=== PATIENT | female | born 1975 | race Caucasian/White ===

== ENCOUNTER 2019-06-28 09:36 | Outpatient (CLI) | payer OTHER, SELFPAY ==
--- NOTE | 2019-06-28 09:43 | US_ITS ---
WS: [id number] TRANSABDOMINAL PELVIC AND TRANSVAGINAL PELVIC ULTRASOUND HISTORY: MENORRHAGIA/HYPOTHYROIDISM COMPARISON: None available. Uterus: 9.4 cm x 5.6 cm x 4.3 cm. Uterus is moderately enlarged and anteverted. Heterogeneous appeara nce to the myometrium. There is a mass with areas of shadowing in the posterior mid myometrium measur ing 3.5 x 3.0 x 3.8 cm. Mild peripheral increased vascularity. Mass is distorting the adjacent endome trium. Endometrium: Poorly visualized endometrium. Poor visualization is due to the large mass in the mid po sterior myometrium. Suspect this is a fibroid which extends submucosal with distortion and displaceme nt of the endometrium. Endometrium is poorly visualized. Right ovary: 1.9 cm x 1.2 cm x 1.2 cm. Normal size and vascularity. Left ovary: LEFT ovary is not visualized. No free fluid. US/US pelvic with transvaginal IMPRESSION: 1. Moderate heterogeneous mass centered in the posterior mid myometrium with s ignificant distortion and displacement of the endometrium. I favor this is prob ably a fibroid which extend submucosal into the endometrium. Without better vis ualization of the endometrium cannot completely exclude endometrial neoplasm al though thought less likely. 2. LEFT ovary not identified.
== END 2019-06-28 09:37 | disposition home or self-care (01) ==
LOC: RAD 09:39
PROVIDERS: Family Provider Family Medicine; PCP Family Medicine; Visit Provider Family Medicine
DX: N92.0 Excessive and frequent menstruation with regular cycle (principal); N85.00 Endometrial hyperplasia, unspecified
CPT/HCPCS: 76830; 76856

== ENCOUNTER → 2019-07-08 10:47 | Outpatient (BNVA) | payer OTHER, SELFPAY | PROVIDERS: Family Provider Family Medicine; PCP Family Medicine; Referring Provider Family Medicine; Visit Provider Obstetrics & Gynecology | DX: N92.0 Excessive and frequent menstruation with regular cycle (principal) | CPT/HCPCS: 85027 ==

== ENCOUNTER 2019-11-23 08:48 | Observation (INO) | payer OTHER, SELFPAY ==
--- NOTE | 2019-11-22 12:58 | ANES.PREANE2 ---
Pre-Anesthetic Assessment Pre-Anesthetic Assessment: Height/Weight: Height 1.65 m Weight 74.843 kg Preop Diagnosis: Uterine fibroid, Menorrhagia Proposed Procedure: Operation Date: 11/23/19 07:00 Proposed Procedures p Laparoscopic Assist Vaginal Hystectomy 31048/D25.9/N92.0(Bilateral) - Clemente Alexander MD s Salpingo-Oophorectomy (Vaginal)(Bilateral) - Clemente Alexander MD Familial anesthetic complications: Shivering post anesthesia Social: Social History: No alcohol and No tobacco Exam: Pre-Anes Outpt Exam: alert, oriented x 3, clear to auscultation bilaterally and regular rate & rhythm Airway: Cervical ROM: WNL MP: 1 Dentition: Full Pulmonary: Pulmonary: None reported CV/HEM: CV/HEM: None reported : : None reported Hepatic: Hepatic: None reported Metabolic: Metabolic: Thyroid (not on any medications) Musc/skel: Musc/skel: None reported Anesthetic Plan: ASA status: 1 Anesthesia: General Risk of > 500 ml blood loss (7ml/kg in children): No PFSH Anesthesia PFSH: Medical History (Updated 11/05/19 @ 17:56 by Clemente Alexander MD) Hyperlipidemia Seasonal allergies Surgical History History of foot surgery (~2002) Right History of wisdom tooth extraction Family History Family/Other Breast cancer maternal aunt Grandmother Colon cancer maternal Father Hypercholesteremia Hypertension Diabetes Mother Hypercholesteremia Hypertension Diabetes Thyroid disease Social History Smoking and tobacco status: never smoked Alcohol intake: never Other details last substance use: Denies drug use. Female Reproductive History: Date of last menstrual period: 11/12/19 Data Anesthesia Cardiac Studies: No Data to Display
[2019-11-22 13:05] LABS: Basophils % 0.5 %; Eosinophils # 0.2 10^3/uL (0.0-0.8); Eosinophils % 2.9 %; Hematocrit 39.8 % (37.0-47.0); Hemoglobin 12.8 g/dL (11.5-15.3); Lymphocytes # 1.8 10^3/uL (0.8-4.8); Lymphocytes % 28.8 %; Mean Corpuscular HGB Conc 32.2 g/dL (30.0-36.0); Mean Corpuscular Hemoglobin 28.9 pg (28.0-34.0); Mean Corpuscular Volume 89.8 fL (81-99); Mean Platelet Volume 10.7 fL (7.4-10.4); Monocytes # 0.5 10^3/uL (0.2-0.9); Monocytes % 7.6 %; Neutrophils # 3.69 10^3/uL (1.8-7.7); Nucleated Red Blood Cells % 0 %; Platelet Count 255 10^3/cmm (130-400); Red Blood Count 4.43 10^6/uL (4.1-5.3); Red Cell Distribution Width 13.7 % (12.1-15.1); White Blood Count 6.2 10^3/uL (4.0-10.0)
[2019-11-22 13:06] LABS: OR HCG Qualitative Urine Negative (Negative)
[2019-11-22 13:16] LABS: Add Urine Microscopic? NO
[2019-11-22 13:32] LABS: Bilirubin Urine Neg (NEGATIVE); Blood Urine Neg (Negative); Glucose Urine UA Norm (Normal); Ketones Urine Negative (Negative); Leukocyte Esterase Urine Negative (Negative); Nitrate Urine Negative (Negative); Protein Urine Neg (Negative); Specific Gravity, Urine 1.015 (1.005-1.030); Urine Appearance Clear (CLEAR); Urine Color Straw (Yellow); Urobilinogen Urine Norm (Negative); pH Urine 5 (5-7)
[2019-11-23] VITALS (17 sets, daily range): BP systolic 87–126; BP diastolic 47–69; PULSE 57–95; RESP 12–18; TEMP 36.4–37.1; O2SAT 95–100; BMI 27.4
[2019-11-23] MEDS: sodium chloride 0.9% 1,000 ML 30 ML IV (06:29)
[2019-11-23] MEDS: scopolamine 1.5 Patch 1 PATCH TRANSDERMA (06:34)
[2019-11-23] MEDS: ketorolac 30 mg/mL INJ IVP (06:41)
[2019-11-23] MEDS: phenazopyridine 100 mg Tablet 200 MG PO (06:42)
--- NOTE | 2019-11-23 06:46 | P.HPUD_ITS ---
Surgery/Procedure H&P Update DATE OF PROCEDURE: November 23, 2019 DATE H&P PERFORMED: 11/01/19 H&P UPDATE INFORMATION: I have reviewed H&P completed within last 30 days, I have examined patient prior to procedure, No changes to prior documentation and H&P is in [facility] on date indicated PREOP DIAGNOSIS: Uterine fibroid, Menorrhagia PLANNED PROCEDURE: Operation Date: 11/23/19 07:00 Proposed Procedures p Laparoscopic Assist Vaginal Hystectomy 70687/D25.9/N92.0(Bilateral) - Clemente Alexander MD s Salpingo-Oophorectomy (Vaginal)(Bilateral) - Clemente Alexander MD
[2019-11-23] MEDS: clindamycin 900 MG/50 ML PREMIX 100 MG IV (07:11)
--- NOTE | 2019-11-23 07:25 | SUR.OPER ---
0724 - Pt[place] notified of surgery start via his cell phone.
[2019-11-23] MEDS: vasopressin 20 unit/mL INJ INJECTION (07:44)
--- NOTE | 2019-11-23 08:34 | P.OP_ITS ---
Operative Report Date of procedure: November 23, 2019 Pre-op Diagnosis: Uterine fibroid, Menorrhagia Post-op Diagnosis: Uterine fibroid, Menorrhagia Procedure Done: Laparoscopic assisted vaginal hysterectomy with bilateral salpingectomy Specimens removed/disposition: Uterus, cervix, bilateral fallopian tubes Surgeon: Clemente Alexander Tool Storage Attendant: None Anesthesia: General Estimated blood loss (mL): 30 IV fluids (mL): 1,300 Complications: None Findings: Fundal uterine fibroid noted. Normal-appearing ovaries and fallopian tubes. Bilateral paratubal cyst present. Normal-appearing appendix. No adhesions noted. No evidence of endometriosis seen. Condition: stable Brief History: Patient is a 44-year-old white female 2, para 1-1-0-2. She presented to the office with a complaint of worsening bleeding with periods for the last 1-1/2 years. Bleeding is regular in timing. She typically bleeds 5 to 6 days with 2 to 4 days being heavy. She typically soaks a pad and tampon every hour. She reports passing up to quarter sized clots. She reports that she does bleed through to her clothing at least once per cycle. She had been treated with control pills which had not been working. She had a pelvic ultrasound performed which showed a 4 cm uterine fibroid that appeared to extend from the endometrial lining up to the serosa. This was thought to most likely be contributing to if not the cause for her heavy bleeding. Treatment options were discussed with her and she is presenting for hysterectomy. Procedure: The patient was taken to the operating room where general anesthesia was obtained. She was prepped and draped in the usual sterile fashion in the dorsal supine position with legs in Tobin style stirrups. Sequential compression boots were placed prior to starting the case. Anguiano catheter was inserted and exam under anesthesia was performed. She was found to have first to second-degree uterine prolapse. Weighted speculum was placed in the vagina and the cervix was grasped with a single-tooth tenaculum. A Hulka was placed. The infraumbilical region was injected with 2% lidocaine with epinephrine. Skin incision was made with a knife in the lower edge of the navel and a size 10 trocar and sheath were inserted under direct visualization using an Optiview type technique. Trocar was removed and replaced with just the laparoscope confirming intra-abdominal placement. The anterior abdominal wall was inspected and noted to be free of adhesions. In the right and left lower quadrants, lateral to the inferior epigastric vessels, the skin was injected with 2% lidocaine with epinephrine. Skin incisions were made with the knife and a 5 mm trocar and sheath were inserted under direct visualization at each site. The pelvis was inspected and was normal in appearance. She had a fundal fibroid noted. Tubes and ovaries were normal in appearance. She had bilateral paratubal cysts noted. No evidence of endometriosis seen. Appendix was normal in appearance. Using the Voyant sealing device, the left mesosalpinx was sealed and cut and carried over to the corner of the uterus. The utero-ovarian ligament was sealed and cut. The round ligament was sealed and cut and the dissection carried along the lateral aspect of the uterus to approximately the level of the internal os. The broad ligament was and the dissection carried over the lower uterine segment. Using the Voyant sealing device, the right mesosalpinx was sealed and cut and carried over to the corner of the uterus. The utero-ovarian ligament was sealed and cut. The round ligament was sealed and cut and the dissection carried along the lateral aspect of the uterus to approximately the level of the internal os. The broad ligament was and the dissection carried over the lower uterine segment to meet with the dissection from the contralateral side. The dissection areas were noted to be hemostatic. The abdomen was deflated. The patient's legs were placed in the high lithotomy position. The Hulka was removed and a weighted speculum placed in the vagina. The cervix was regrasped with single-tooth tenaculums. The cervix was circumferentially injected with dilute Pitressin solution. A circumferential incision was made with the knife around the cervix. Bladder was bluntly dissected off of the lower uterine segment. Posterior cul-de-sac was sharply entered and the peritoneum tagged to the vaginal mucosa in the midline. A long weighted retractor was placed in the posterior cul-de-sac. The uterosacral ligaments were clamped, cut, and suture ligated with 0 Vicryl suture bilaterally. The cardinal ligaments were clamped, cut, and suture ligated with 0 Vicryl suture bilaterally. The bladder was sharply dissected away from the uterus and the anterior cul-de-sac entered. A long right angle retractor was used to elevate the bladder away from the uterus. The remaining portion of the broad ligament was serially clamped, cut, and suture ligated with 0 Vicryl suture until the uterus was completely excised. The pedicles were inspected and noted to be hemostatic. Posterior edge of the vaginal cuff was oversewn with 0 Vicryl suture in a runn ing locking fashion incorporating the peritoneum to the vaginal mucosa. This extended from the 3:00 position to the 9:00 position posteriorly. The vaginal cuff was closed in a vertical fashion using 0 Vicryl suture in an interrupted [id number] fashion. The uterosacral ligaments and cardinal ligaments were tied in the midline using previously held sutures. The cuff was noted to be hemostatic. The abdomen was reinflated and and the pelvis thoroughly inspected. The areas of dissection were noted to be hemostatic. They were inspected under normal and low pressures. The abdomen was deflated and the ports removed. The 5 mm sites were closed with single stitches of 4-0 Vicryl suture. The umbilical site was closed with a deep stitch of 4-0 Vicryl suture followed by subcuticular closure of the skin. Steri-Strips were applied. Patient tolerated the procedures well. Sponge needle and instrument counts were correct. DRAINS: Anguiano catheter POSTOPERATIVE STATUS: The patient was transferred to the recovery room in satisfactory condition.
[2019-11-23] MEDS: ondansetron 2 mg/ML SDV 2 mL 4 MG IVP ×2 (08:50→09:25)
[2019-11-23] MEDS: dextrose 5%-lactated ringers 1,000 ML 125 ML IV ×2 (09:23→17:51)
[2019-11-23] MEDS: morphine 4 mg/mL SDV 1 mL IVP (10:22)
[2019-11-23] MEDS: HYDROcodone-acetaminophen 5-325 mg Tablet PO ×3 (12:13→20:52)
[2019-11-23] MEDS: docusate sodium 100 mg Capsule PO (17:51)
--- NOTE | 2019-11-24 02:44 | PC.NURSE ---
Restarted IV fluids at 125 ml
[2019-11-24 05:26] LABS: Hematocrit 31.2 % (37.0-47.0); Hemoglobin 10.1 g/dL (11.5-15.3); Mean Corpuscular HGB Conc 32.4 g/dL (30.0-36.0); Mean Corpuscular Hemoglobin 28.8 pg (28.0-34.0); Mean Corpuscular Volume 88.9 fL (81-99); Mean Platelet Volume 10.8 fL (7.4-10.4); Platelet Count 196 10^3/cmm (130-400); Red Blood Count 3.51 10^6/uL (4.1-5.3); White Blood Count 10.2 10^3/uL (4.0-10.0)
--- NOTE | 2019-11-24 08:56 | P.DS_ITS ---
Discharge Providers Date of Admission: 11/23/19 08:48 Date of Discharge: November 24, 2019 Attending Provider at Admission: Clemente Alexander MD Attending Provider at Discharge: Clemente Alexander MD Primary Care Provider: Cristofer Knott MD Diagnoses at Discharge Discharge Diagnosis (1) Uterine fibroid: Status: Acute Qualifiers: Uterine leiomyoma location: intramural Qualified Code(s): D25.1 - Intramural leiomyoma of uterus (2) Menorrhagia: Status: Acute Qualifiers: Menorrhagia type: with regular cycle Qualified Code(s): N92.0 - Exce ssive and frequent menstruation with regular cycle Hospital Course Hospital Course: Patient is a 44-year-old white female 2, para 1-1-0-1 who had presented to the office with complaints of worsening bleeding with her periods. This is been a problem for at least the last 1-1/2 years. Cycles are regular in timing and she will bleed for 5 to 6 days with 2 to 4 days being heavy. Typically soaks a pad and tampon every hour and will bleed through to her clothing at times. Passes up to quarter sized clots. She been treated with control pills which had not been working. Ultrasound had shown a 4 cm uterine fibroid that was transmural. Because of her problems, she is decided proceed to hysterectomy. She was requesting that ovaries not be removed. She was admitted to the hospital where a laparoscopic assisted vaginal hysterectomy with bilateral salpingectomy was performed. She tolerated the s urgery well. Following surgery she had issues with lightheadedness and dizziness to the point that she was not able to ambulate well. As a result she was kept through the night. Postoperative Day 1 Patient reports doing better this morning. She states that her pain is been well controlled on oral medications. She stated that the lightheadedness and dizziness were essentially gone this morning. She denied any shortness of breath or chest pains. She denied any other nausea vomiting during the night and was tolerating clear liquids. Physical Exam: See below Plan She was advanced to a regular diet this morning. She reported some slight nausea as she was finishing breakfast but did not feel that this was significant enough to need to take anything. She is now reporting that those symptoms are completely gone and she is wanting to go home. Discharge to home. Discharge instructions were discussed with her. She is to follow-up in the office in 2 and 6 weeks following surgery. Physical Exam Const: COMMON NORMALS: no acute distress, average body habitus, alert and well nourished GENERAL APPEARANCE: well developed ORIENTATION/CONSCIOUSNESS: Yes oriented to person, Yes oriented to place and Yes oriented to time Resp: COMMON NORMALS: normal respiratory effort and clear to auscultation bilaterally AUSCULTATION: clear to auscultation bilaterally Cardio: COMMON NORMALS: regular rate, regular rhythm, No gallops present (Cardio), No murmurs present (Cardio) and No rub (Cardio) RATE: regular rate RHYTHM: regular rhythm GI: COMMON NORMALS: Soft to palpation, No hepatosplenomegaly present and no masses INSPECTION: Yes incision (Laparoscopy sites well approximated) AUSCULTATION: Yes normoactive bowel sounds PALPATION: Yes Soft to palpation, Yes Tenderness to palpation present (GI) (Tender in the lower abdomen.), Yes No hepatosplenomegaly present and No Hernia present : EXTERNAL FEMALE EXAM: No Hernia present Extremity: COMMON NORMALS: no clubbing, cyanosis or edema and no calf tenderness Neuro: SENSORIUM/ORIENTATION: Yes alert, Yes oriented to person, Yes oriented to place and Yes oriented to time Psych: COMMON NORMALS: normal affect MOOD & AFFECT: Yes euthymic mood Urinary Catheter Management^: Anguiano: Cath Placed During This Visit: yes, but has since been removed by the nurse Reason for Continuing Indwelling Catheter: Decision to DC Catheter Urinary Catheter Date of Insertion: 11/23/19 Urinary Catheter Time of Insertion: 07:20 Date Urinary Catheter Removed: 11/24/19 Time Urinary Catheter Discontinued: 08:27 Discharge Data Data Completed and Pending: Pending at discharge Category Date Time Status ES surgery / GI i mages Routine Exams 11/23/19 06:35 Taken Pathology: Surgic al [PTH] Routine Pth 11/23/19 08:35 Received Labs from last 24 hours 11/24/19 05:15 WBC 10.2 H RBC 3.51 L Hgb 10.1 L Hct 31.2 L MCV 88.9 MCH 28.8 MCHC 32.4 RDW 14.0 Plt Count 196 MPV 10.8 H Vitals: Last Vital Signs Temp 97.6 F 11/23/19 22:00 Pulse 71 11/23/19 22:00 Resp 16 11/23/19 22:00 BP 95/56 11/23/19 22:00 Pulse Ox 98 11/23/19 22:00 Discharge Plan Discharge Patient Disposition: Home Condition: Stable Prescriptions: New hydrocodone-acetaminophen 5-325 mg Tablet 1 - 2 tab PO Q6H PRN (Reason: Moderate To Severe Pain) 7 Days Qty: 30 RF: 0 ibuprofen 800 mg Tablet 800 mg PO TID PRN (Reason: pain) Qty: 40 RF: 0 Continued cetirizine 10 mg capsule 10 mg PO DAILY RF: 0 fluticasone propionate [Flonase Allergy Relief] 50 mcg/actuation spray,suspension 1 spray INTRANASAL DAILY RF: 0 Discharge Orders: Discharge Order (Routine); Ordered 11/24/19 Ordered By: Clemente Alexander Referrals: Clemente Alexander MD [Physician] - 12/15/19 10:15 am (Postoperative visit) Discharge Diet: Regular Discharge Activity: Limit activity as instructed Patient Instructions: OB Abdominal Surgery - [facility] Activity Restrictions/Additional Instructions: May use [id number] MiraLAX as needed for constipation, follow instructions on the bottle. Discharge Attestations Time Spent in Discharge Care*: less than 30 min Quality Metrics Clinical Quality Measures During this hospital stay, did patient experience: None Coding Level of Care Code Acute [employer] Fwd Diagnoses Uterine fibroid D25.1 Uterine leiomyoma location: intramural Menorrhagia N92.0 Menorrhagia type: with regular cycle
[2019-11-24] MEDS: docusate sodium 100 mg Capsule PO (09:07)
[2019-11-24 09:54] VITALS: BP 104/65; PULSE 71; RESP 18; TEMP 36.5; O2SAT 97
[2019-11-24] MEDS: HYDROcodone-acetaminophen 5-325 mg Tablet PO (09:57)
== END 2019-11-24 10:22 | disposition home or self-care (01) ==
LOC: OBGYN 08:48
PROVIDERS: Admitting Provider Obstetrics & Gynecology; PCP Family Medicine; Visit Provider Obstetrics & Gynecology
PROC: 0UT9FZZ Resection of Uterus, Via Natural or Artificial Opening With Percutaneous Endoscopic Assistance (ICD-10-PCS; CPT 58552; principal; 2019-11-23 07:00)
PROC: (CPT 58661; 2019-11-23 07:00)
DX: D25.1 Intramural leiomyoma of uterus (principal); N92.0 Excessive and frequent menstruation with regular cycle; E78.5 Hyperlipidemia, unspecified
CPT/HCPCS: 58552; 12345; 36415; 81003; 81025; 84703; 85025; 85027; 86850; 86900; 88307; 96361; 96365; 96374; 96375; G0378; J0131; J1100; J1580; J1885; J2270; J2405; J2704; J2710; J2765; J3010; J3490; J7030

== ENCOUNTER → 2019-12-15 10:16 | Outpatient (BNVA) | payer SELFPAY | PROVIDERS: PCP Family Medicine; Visit Provider Obstetrics & Gynecology | DX: N39.0 Urinary tract infection, site not specified (principal); R39.15 Urgency of urination | CPT/HCPCS: 80053; 81000 ==

== ENCOUNTER 2020-04-17 11:05 | Outpatient (CLI) | payer OTHER, SELFPAY ==
--- NOTE | 2020-04-17 11:13 | MM_ITS ---
WS: [id number] BILATERAL SCREENING DIGITAL MAMMOGRAM WITH CAD HISTORY: SCREENING COMPARISON: 03/09/2018 Bilateral CC and MLO views submitted. Computer aided detection analyzed. Breast composition: The breasts are heterogeneously dense, which may obscure small masses. No suspici ous masses, microcalcifications or architectural distortion. No change in the lymph node near the axi llary tail of the RIGHT breast. Small benign calcifications in the RIGHT breast. MM/[place] [id number] IMPRESSION: BI-RADS: 2-Benign FOLLOW UP: 1 Year Follow-up
== END 2020-04-17 11:06 | disposition home or self-care (01) ==
LOC: RADSHAW 11:08
PROVIDERS: PCP Family Medicine; Visit Provider Family Medicine
DX: Z12.31 Encounter for screening mammogram for malignant neoplasm of breast (principal)
CPT/HCPCS: 77067

== ENCOUNTER → 2021-01-05 10:14 | Outpatient (BNVA) | payer OTHER, SELFPAY | PROVIDERS: PCP Family Medicine; Visit Provider Obstetrics & Gynecology | DX: N89.8 Other specified noninflammatory disorders of vagina (principal) | CPT/HCPCS: 87530 ==

== ENCOUNTER 2021-05-11 10:55 | Outpatient (CLI) | payer OTHER, SELFPAY ==
--- NOTE | 2021-05-11 10:59 | XR_ITS ---
WS: [id number] INDICATION: Fall patella pain TECHNIQUE: 3 views of the left patella. FINDINGS: Normal anatomic alignment. No acute fractures. Mild soft tissue edema. Small suprapatellar effusion. Patella appears normal. Distal femur and tibial plateau appear normal. XR/XR patella LT 1-2V [id number] IMPRESSION: 1. Mild soft tissue edema with a small suprapatellar effusion. 2. No acute fractures.
== END 2021-05-11 10:56 | disposition home or self-care (01) ==
PROVIDERS: PCP Family Medicine; Visit Provider Family Medicine Adult Medicine
DX: S89.92XA Unspecified injury of left lower leg, initial encounter (principal); W19.XXXA Unspecified fall, initial encounter; R60.0 Localized edema; M25.462 Effusion, left knee
CPT/HCPCS: 73560

== ENCOUNTER 2021-08-02 08:37 | Outpatient (CLI) | payer OTHER, SELFPAY ==
--- NOTE | 2021-08-02 08:48 | MM_ITS ---
WS: [id number] Bilateral screening 3D tomosynthesis digital mammogram, 08/02/2021 Clinical Data: SCREENING Comparison: 04/17/2020, 03/09/2018. Findings: The breast parenchymal pattern shows heterogeneous density No spiculated masses or clustered calcific ations are seen. There are no secondary signs of carcinoma. There are lymph nodes in both axilla. MM/[place] [id number] Impression: 1. Negative bilateral mammogram unchanged. 2. Recommend annual screening mammograms. BIRADS: 1-Negative FOLLOW UP: 1 Year Follow-up The CAD grade checker was used.
== END 2021-08-02 08:38 | disposition home or self-care (01) ==
LOC: RADSHAW 08:41
PROVIDERS: PCP Family Medicine; Visit Provider Family Medicine
DX: Z12.31 Encounter for screening mammogram for malignant neoplasm of breast (principal)
CPT/HCPCS: 77063; 77067

== ENCOUNTER 2022-08-05 07:02 | Outpatient (CLI) | payer OTHER, SELFPAY ==
--- NOTE | 2022-08-05 07:30 | MM_ITS ---
WS: [id number] SCREENING DIGITAL BREAST TOMOSYNTHESIS MAMMOGRAM WITH CAD HISTORY: SCREENING COMPARISON: 04/17/2020, 08/02/2021 Bilateral CC and MLO with tomosynthesis and synthetic mammography submitted. Computer aided detection analyzed. Breast composition: The breasts are heterogeneously dense, which may obscure small masses. Asymmetry seen only on the LEFT MLO projection superior breast measures 10 mm. This may be superimpos ed fibroglandular tissue. RIGHT breast is negative. MM/[place] [id number] IMPRESSION: BI-RADS: 0-Incomplete: Need additional imaging evaluation FOLLOW UP: Need Additional Imaging LEFT breast: Spot compression views (exaggerated lateral CC and MLO). True ML. Ultrasound to follow if abnormality persists.
== END 2022-08-05 07:03 | disposition home or self-care (01) ==
LOC: RAD 07:04
PROVIDERS: PCP Family Medicine; Visit Provider Family Medicine
DX: Z12.31 Encounter for screening mammogram for malignant neoplasm of breast (principal)
CPT/HCPCS: 77063; 77067

== ENCOUNTER 2022-08-21 07:34 | Outpatient (CLI) | payer OTHER, SELFPAY ==
--- NOTE | 2022-08-21 08:00 | MM_ITS ---
WS: [id number] Left breast diagnostic 3D tomosynthesis digital mammogram, 08/21/2022 Clinical Data: Abnormal mammogram Comparison: 08/05/2022, 08/02/2021, 04/17/2020, 03/09/2018. Findings: There is still left breast asymmetry in the upper outer quadrant at the 1:00 to 2:00 o'clock position . No spiculated masses or clustered calcifications are seen. There are no secondary signs of carcinom a. MM/[id number] Impression: 1. Minimal left breast asymmetry in the upper outer quadrant at the 1 to 2:00 p osition. 2. Left breast ultrasound BIRADS: 2-Benign FOLLOW UP: See Report The CAD installment account checker was used.
--- NOTE | 2022-08-21 08:30 | US_ITS ---
WS: [id number] Left breast ultrasound, 08/21/2022 Clinical Data: ABNORMAL MAMMO Comparison: Mammogram, 08/21/2022, left breast ultrasound, 03/09/2018 Findings: At the 2:00 position in the left breast in the upper outer quadrant there are numerous simple and com plex cysts. The border benton are well-defined. There are no internal echoes. The largest cyst measure s 0.69 x 0.95 x 1.39 cm. US/US breast LT limited* [id number] Impression: 1. Numerous simple and complex cysts in the 2:00 position of the left breast. 2. Recommend return to annual screening mammograms. BIRADS: 2-Benign FOLLOW UP: See Report
== END 2022-08-21 07:35 | disposition home or self-care (01) ==
PROVIDERS: PCP Family Medicine; Visit Provider Family Medicine
DX: N64.89 Other specified disorders of breast (principal); N60.02 Solitary cyst of left breast; R92.8 Other abnormal and inconclusive findings on diagnostic imaging of breast
CPT/HCPCS: 76642; 77061; G0279

== ENCOUNTER → 2024-03-10 08:32 | Outpatient (BNVA) | payer OTHER, SELFPAY | PROVIDERS: PCP Family Medicine; Visit Provider Nurse Practitioner Women's Health | DX: Z90.710 Acquired absence of both cervix and uterus (principal); N83.201 Unspecified ovarian cyst, right side | CPT/HCPCS: 76830 ==

== ENCOUNTER 2024-11-01 07:40 | Outpatient (CLI) | payer OTHER, SELFPAY ==
--- NOTE | 2024-11-01 07:48 | MM_ITS ---
WS: [id number] BILATERAL SCREENING DIGITAL TOMOSYNTHESIS MAMMOGRAM WITH CAD HISTORY: SCREENING COMPARISON: 10/31/2023, 08/05/2022 Bilateral CC and MLO views with tomosynthesis and synthetic mammography submitted. Computer aided detection analyzed. Breast composition: The breasts are heterogeneously dense, which may obscure small masses. No suspicious masses, microcalcifications or architectural distortion. MM/MM scr BI tomosynthesis [id number] IMPRESSION: BI-RADS: 1 - Negative FOLLOW UP: 1 Year Follow-up
== END 2024-11-01 07:41 | disposition home or self-care (01) ==
LOC: RAD 07:40
PROVIDERS: PCP Family Medicine; Visit Provider Family Medicine
DX: Z12.31 Encounter for screening mammogram for malignant neoplasm of breast (principal); R92.333 Mammographic heterogeneous density, bilateral breasts
CPT/HCPCS: 77063; 77067

== ENCOUNTER → 2024-12-30 11:14 | Outpatient (BNVA) | payer OTHER, SELFPAY | PROVIDERS: PCP Family Medicine; Visit Provider Podiatrist Foot & Ankle Surgery | DX: M72.2 Plantar fascial fibromatosis (principal); S93.692A Other sprain of left foot, initial encounter; X58.XXXA Exposure to other specified factors, initial encounter; M79.672 Pain in left foot; M25.572 Pain in left ankle and joints of left foot | CPT/HCPCS: 73600; 73630 ==